=== PATIENT | male | born 1960 | race Caucasian/White ===

== ENCOUNTER 2023-07-27 13:25 | Emergency (ER) | payer OTHER ==
[2023-07-27 13:47] VITALS: TEMP 98
--- NOTE | 2023-07-27 13:58 | XR ---
EXAMINATION TYPE: XR ribs LT w pa chest xray, 5 views DATE OF EXAM: 07/27/2023 Comparison: None Clinical History: 62-year-old male Left-sided rib pain after fall Findings: Heart normal size. Aorta and pulmonary vasculature within normal limits. No consolidation or pleural effusion. Mild hyperinflation. No displaced left rib fracture seen. Impression: COPD. No acute cardiopulmonary process. No displaced left rib fracture seen.
[2023-07-27] MEDS ORDERED: ACET/COD 300 MG/30 MG STARTER PACK 6 TAB BTL PO STA (14:30)
--- NOTE | 2023-07-27 14:31 | ED ---
Fall HPI - General Chief Complaint: Fall Stated Complaint: fall,hurt ribs Time Seen by Provider: 07/27/23 13:33 Source: patient, old records reviewed Mode of arrival: ambulatory Limitations: no limitations - History of Present Illness Initial Comments: 62-year-old male presents emergency Department chief complaint of fall. Patient states he fell days ago outside on his left side, he landed on a brick. Patient went left-sided rib pain no head injury or loss conscious or shortness of breath no other complaints. Denies hematuria - Related Data Previous Rx's Medication Instructions Recorded Cyclobenzaprine [Flexeril] 5 mg PO TID PRN #15 tablet 07/27/23 Ketorolac [Toradol] 10 mg PO Q8HR #15 tab 07/27/23 Allergies Allergy/AdvReac Type Severity Reaction Status Date / Time No Known Allergies Allergy Verified 07/27/23 13:29 Review of Systems ROS Statement: Those systems with pertinent positive or pertinent negative responses have been documented in the HPI. ROS Other: All systems not noted in ROS Statement are negative. Past Medical History Past Medical History: No Reported History History of Any Multi-Drug Resistant Organisms: None Reported Past Surgical History: No Surgical Hx Reported Past Psychological History: No Psychological Hx Reported Smoking Status: Former smoker Past Alcohol Use History: Occasional Past Drug Use History: None Reported General Exam Limitations: no limitations General appearance: alert, in no apparent distress Head exam: Present: atraumatic, normocephalic, normal inspection Respiratory exam: Present: normal lung sounds bilaterally, chest wall tenderness. Absent: respiratory distress, wheezes, rales, rhonchi, stridor Cardiovascular Exam: Present: regular rate, normal rhythm, normal heart sounds. Absent: systolic murmur, diastolic murmur, rubs, gallop, clicks GI/Abdominal exam: Present: soft, normal bowel sounds. Absent: distended, tenderness, guarding, rebound, rigid Course Vital Signs 07/27/23 07/27/23 13:27 14:39 Temperature 98 F Pulse Rate 102 H 100 Respiratory 20 18 Rate Blood Pressure 153/74 157/84 O2 Sat by Pulse 99 97 Oximetry Medical Decision Making - Medical Decision Making Was pt. sent in by a medical professional or institution (, PA, VIBRATION ANALYST, urgent care, hospital, or snf...) When possible be specific @ -No Did you speak to anyone other than the patient for history (EMS, parent, family, police, friend...)? What history was obtained from this source @ -No Did you review nursing and triage notes (agree or disagree)? Why? @ -I reviewed and agree with nursing and triage notes Were old charts reviewed (outside hosp., previous admission, EMS record, old EKG, old radiological studies, urgent care reports/EKG's, snf records)? Report findings @ -No old charts were reviewed Differential Diagnosis (chest pain, altered mental status, abdominal pain women, abdominal pain men, vaginal bleeding, weakness, fever, dyspnea, syncope, headache, dizziness, GI bleed, back pain, seizure, CVA, palpatations, mental health, musculoskeletal)? @ -Rib fracture, rib contusion EKG interpreted by me (3pts min.). @ -[None X-rays interpreted by me (1pt min.). @ -X-ray rib series left, no acute fracture or pneumothorax CT interpreted by me (1pt min.). @ -None done U/S interpreted by me (1pt. min.). @ -None done What testing was considered but not performed or refused? (CT, X-rays, U/S, labs)? Why? @ -None What meds were considered but not given or refused? Why? @ -None Did you discuss the management of the patient with other professionals (professionals i.e. , PA, VIBRATION ANALYST, lab, RT, psych nurse, social work supervisor, train gateman, teacher, environmental compliance officer, case monitor)? Give summary @ -No Was smoking cessation discussed for >3mins.? @ -No Was critical care preformed (if so, how long)? @ -No Were there social determinants of health that impacted care today? How? (Homelessness, low income, unemployed, alcoholism, drug addiction, transportation, low edu. Level, literacy, decrease access to med. care, snf, rehab)? @ -No Was there de-escalation of care discussed even if they declined (Discuss DNR or withdrawal of care, Hospice)? DNR status @ -No What co-morbidities impacted this encounter? (DM, HTN, Smoking, COPD, CAD, Cancer, CVA, ARF, Chemo, Hep., AIDS, mental health diagnosis, sleep apnea, morbid obesity)? @ -None Was patient admitted / discharged? Hospital course, mention meds given and route, prescriptions, significant lab abnormalities, going to OR and other pertinent info. @ -Discharge patient has a left-sided rib contusion patient has no evidence of rib fracture pneumothorax he is discharged with analgesics return parameters were discussed. Undiagnosed new problem with uncertain prognosis? @ -No Drug Therapy requiring intensive monitoring for toxicity (Heparin, Nitro, Insulin, Cardizem)? @ -No Were any procedures done? @ -No Diagnosis/symptom? @ -Fall, rib contusion left Acute, or Chronic, or Acute on Chronic? @ -[Acute Uncomplicated (without systemic symptoms) or Complicated (systemic symptoms)? @ -Uncomplicated Side effects of treatment? @ -No Exacerbation, Progression, or Severe Exacerbation? @ -No Poses a threat to life or bodily function? How? (Chest pain, [place], [place], pneumonia, PE, COPD, DKA, ARF, appy, cholecystitis, CVA, Diverticulitis, Homicidal, Suicidal, threat to staff... and all critical care pts) @ -No Disposition Clinical Impression: Fall, Contusion of rib on left side Disposition: HOME SELF-CARE Condition: Stable Instructions (If sedation given, give patient instructions): Rib Contusion (ED) Additional Instructions: Please return to the Emergency Department if symptoms worsen or any other concerns. Prescriptions: Cyclobenzaprine [Flexeril] 5 mg PO TID PRN #15 tablet PRN Reason: Muscle Spasm Ketorolac [Toradol] 10 mg PO Q8HR #15 tab Is patient prescribed a controlled substance at d/c from ED?: No Referrals: None,Stated [Primary Care Provider] - 1-2 days Time of Disposition: 14:31
[2023-07-27 14:54] VITALS: BP 157/84; PULSE 100; RESP 18
== END 2023-07-27 14:41 | disposition home or self-care (01) ==
LOC: EC 13:25
DX: S20.212A Contusion of left front wall of thorax, initial encounter (principal); Z87.891 Personal history of nicotine dependence; W18.30XA Fall on same level, unspecified, initial encounter
CPT/HCPCS: 99283